=== PATIENT | male | born 1970 | race Caucasian/White ===

== ENCOUNTER 2018-04-14 01:03 | Emergency (ER) | payer OTHER ==
[~2018-04-14] VITALS: Ht 177.8 cm; Wt 111.4 kg
[2018-04-14 01:09] VITALS: Ht 177.8 cm; Wt 111.4 kg
[2018-04-14] MEDS ORDERED: ZANTAC300 MG PO (01:10)
[2018-04-14] MEDS ORDERED: OMEPRAZOLE20 M1 PO (01:10)
[2018-04-14 01:43] LABS: BASOPHILS 0.5 % (0-2); EOSINOPHILS 3.7 % (0-7); HEMOGLOBIN 15.5 g/dL (13.5-17.5); IMMATURE GRANULOCYTES 0.4 % (0-5); LYMPHOCYTES 23.2 % (15-50); MCH 27.5 pg (26.0-34.0); MCV 76.2 fL (80.0-100.0); MEAN PLATELET VOLUME 11.5 fL (7.4-10.4); MONOCYTES 9.8 % (2-11); NEUTROPHILS 62.4 % (40-80); PLATELET COUNT 177 10x3/uL (130-400); RBC 5.64 10x6/uL (4.20-6.10); RDW 12.3 % (11.5-14.5); WBC 7.4 10x3/uL (4.8-10.8)
[2018-04-14 01:54] LABS: APTT 29.8 SECONDS (22.8-39.4); INR 0.97 (0.85-1.17); PROTIME 12.4 SECONDS (11.6-15.0)
[2018-04-14 01:55] LABS: ALKALINE PHOSPHATASE 76 U/L (46-116); ALT (SGPT) 71 U/L (10-68); BILIRUBIN - TOTAL 0.75 mg/dL (0.2-1.3); CALC OSMOLALITY 283 mosm/kg (275-300); CALCIUM 9.1 mg/dL (8.5-10.1); CARBON DIOXIDE 28.2 mmol/L (21.0-32.0); CHLORIDE - SERUM 103 mmol/L (98-107); CREATININE - SERUM 1.2 mg/dL (0.6-1.3); GLUCOSE 122 mg/dL (74-106); POTASSIUM - SERUM 3.8 mmol/L (3.5-5.1); PROTEIN - SERUM 7.2 g/dL (6.4-8.2); SODIUM 141 mmol/L (136-145); UREA NITROGEN 19 mg/dL (7-18); eGFR NON AFRICAN AMERICAN 69 mL/min (90-120)
[2018-04-14 02:06] LABS: AMYLASE - SERUM 39 U/L (25-115); CKMB 3.8 U/L (0.0-3.6); CREATINE KINASE 236 UL (21-232); LIPASE 325 U/L (73-393); MAGNESIUM - SERUM 1.9 mg/dL (1.8-2.4); TROPONIN-I < 0.017 ng/mL (0.000-0.060)
[2018-04-14 03:05] VITALS: BP 177/106
[2018-04-18] MEDS ORDERED: COLCRYS0.6 MG PO (12:00)
[2018-04-18] MEDS ORDERED: FLUTICASONE PRO16 GM NASAL (12:00)
== END 2018-04-14 03:05 | disposition home or self-care (01) ==
LOC: D.ER 01:03
PROVIDERS: Family Medicine
DX: R10.13 Epigastric pain (principal)

== ENCOUNTER 2018-04-21 07:15 | Day surgery (SDC) | payer OTHER ==
[2018-04-18 12:24] LABS: BASOPHILS 0.4 % (0-2); EOSINOPHILS 0.7 % (0-7); HEMATOCRIT 45.6 % (42.0-54.0); HEMOGLOBIN 16.2 g/dL (13.5-17.5); IMMATURE GRANULOCYTES 1.2 % (0-5); LYMPHOCYTES 15.1 % (15-50); MCH 27.6 pg (26.0-34.0); MCHC 35.5 g/dL (31.0-37.0); MCV 77.6 fL (80.0-100.0); MEAN PLATELET VOLUME 11.6 fL (7.4-10.4); MONOCYTES 7.3 % (2-11); NEUTROPHILS 75.3 % (40-80); PLATELET COUNT 205 10x3/uL (130-400); RBC 5.88 10x6/uL (4.20-6.10); RDW 12.3 % (11.5-14.5); WBC 12.5 10x3/uL (4.8-10.8)
[2018-04-18 12:42] LABS: CALC OSMOLALITY 289 mosm/kg (275-300); CALCIUM 8.9 mg/dL (8.5-10.1); CHLORIDE - SERUM 104 mmol/L (98-107); CREATININE - SERUM 1.1 mg/dL (0.6-1.3); GLUCOSE 112 mg/dL (74-106); POTASSIUM - SERUM 4.1 mmol/L (3.5-5.1); SODIUM 144 mmol/L (136-145); UREA NITROGEN 18 mg/dL (7-18); eGFR NON AFRICAN AMERICAN 77 mL/min (90-120)
[~2018-04-21] VITALS: Ht 177.8 cm; Wt 111.1 kg
[~2018-04-21 07:15] MED LIST: COLCRYS0.6 MG PO; FLUTICASONE PRO16 GM NASAL; OMEPRAZOLE20 M1 PO; ZANTAC300 MG PO
[2018-04-21 07:42] VITALS: BP 143/87; Ht 177.8 cm; Wt 111.1 kg
[2018-04-21] MEDS ORDERED: NORCO 10-325 TA1 TAB PO (09:06)
--- NOTE | 2018-04-21 09:45 | NUR ---
REC'D FROM RR. FAMILY AT BEDSIDE. DRESSINGS CDI TO ABD. INCISIONS.. ICE WATER AND FL TRAY BROUGHT TO PT.
--- NOTE | 2018-04-21 09:55 | NUR ---
RATES PAIN 3/10. DENIES NEED FOR PAIN MED. ICE PACK GIVEN TO PT TO APPLY TO ABD AREA.
--- NOTE | 2018-04-21 10:20 | NUR ---
TOLERATED DIET. NO URGE TO VOID. FAMILY AT BEDSIDE. PAIN 3-4/10. REQUESTING PAIN MED FOR THE RIDE HOME.
--- NOTE | 2018-04-21 10:33 | NUR ---
[facility]CO 10MG ADMINISTERED PO FOR RIDE HOME. RATES PAIN 2/10. FAMILY AT BEDSIDE.
--- NOTE | 2018-04-21 10:45 | NUR ---
RESTING. EYES CLOSED. NO URGE TO VOID AT THIS. FAMILY AT BEDSIDE.
--- NOTE | 2018-04-21 11:30 | NUR ---
UP TO BATHROOM. VOIDED WITHOUT DIFFICULTY. IV DC'D WITH CATHETER INTACT.
--- NOTE | 2018-04-21 11:40 | NUR ---
WRITTEN AND VERBAL DC INST. GIVEN TO PT ALONG WITH RX. VERBALIZED UNDERSTANDING.
--- NOTE | 2018-04-21 11:45 | NUR ---
DC'D HOME WITH FAMILY VIA PRIVATE VEHICLE. TAKEN TO VEHICLE VIA WC. STABLE AT TIME OF DC.
--- NOTE | 2018-04-26 11:56 | OP ---
PATIENT NAME: CHELSEA TOVAR MEDICAL RECORD: [id number] :74 LOCATION:D.OPS ADMISSION DATE: SURGEON: KAYDEN SINGH MD DATE OF OPERATION: 04/21/2018 PREOPERATIVE DIAGNOSES: 1. Gallstones. 2. Hypercholesterolemia. 3. Gout. POSTOPERATIVE DIAGNOSES: 1. Gallstones. 2. Hypercholesterolemia. 3. Gout. PROCEDURE: Laparoscopic cholecystectomy. SURGEON: Kayden Singh MD REPORT OF PROCEDURE: The patient's abdomen was prepped and draped in sterile fashion. A cutdown was made on the superior aspect of the umbilicus, 0 Vicryls were placed in the fascia bilaterally and the fascia was incised with 15-blade. I then bluntly entered the peritoneal cavity and placed a 12-mm Naina port. Under direct visualization, a 5 mm trocar was placed in the epigastrium and 2 more 5-mm trocars were placed in the right subcostal region. The gallbladder was grasped and elevated. There were some inflammatory adhesions present and these were teased down carefully with blunt dissection. The cystic artery and cystic duct were dissected free and these were clipped proximally and distally and ligated in standard fashion. The gallbladder was taken off the liver bed using electrocautery and placed into the right upper quadrant. Any bleeding from the liver bed was then treated with electrocautery. We irrigated out the right upper quadrant and assured there was no sign of any bleeding or bile leakage. At this point, the ports and insufflation were then removed and the gallbladder was taken out through the umbilicus. The umbilical fascia was closed with interrupted 0 Vicryls times 3. The wounds were then irrigated out with normal saline and infused with 10 mL of 0.25% Marcaine with epinephrine. The skin incisions were all closed with subcutaneous 5-0 Monocryl and dressed appropriately. COMPLICATIONS: None. CONDITION: Stable. ANESTHESIA: General endotracheal and local. BLOOD LOSS: Minimal. TRANSINT:[id number] Voice Confirmation ID: [id number] DOCUMENT ID: [id number] OPERATIVE REPORT [id number] GUYKAYDEN MUNOZ MD at 1156 CC: RENEE LEE MD [id number] DICTATION DATE: 04/21/18909 CUSTOMER EXPERIENCE RETAIL CLERK: 04/21/[id number] [facility] 04/21/18 [facility] [address] [place] [address]
== END 2018-04-21 11:45 | disposition home or self-care (01) ==
LOC: D.OPS 07:15 → D.PAN 09:10 → D.OPS 09:30
PROVIDERS: Surgery
DX: K80.20 Calculus of gallbladder without cholecystitis without obstruction (principal); E78.00 Pure hypercholesterolemia, unspecified; M10.9 Gout, unspecified; Z01.812 Encounter for preprocedural laboratory examination